=== PATIENT | female | born 1985 | race Caucasian/White ===

== ENCOUNTER 2023-05-05 18:37 | Emergency (ER) | payer BC, SELFPAY ==
[2023-05-05 18:38] VITALS: BP 135/84; PULSE 90; RESP 20; TEMP 36.4; O2SAT 100; BMI 29.2
--- NOTE | 2023-05-05 19:08 | XR_ITS ---
PROCEDURE INFORMATION: Exam: XR Right Foot Exam date and time: 05/05/2023 7:06 PM Age: 37 years old Clinical indication: Injury or trauma; Fall; Blunt trauma; Foot; Right; Additional info: Inversion injury TECHNIQUE: Imaging protocol: Radiologic exam of the right foot. Views: 3 or more views. COMPARISON: No relevant prior studies available. FINDINGS: Bones/joints: Normal. Soft tissues: Normal. IMPRESSION: No acute findings.
--- NOTE | 2023-05-05 19:08 | XR_ITS ---
PROCEDURE INFORMATION: Exam: XR Right Ankle Exam date and time: 05/05/2023 7:08 PM Age: 37 years old Clinical indication: Injury or trauma; Fall; Blunt trauma; Ankle; Right; Additional info: Inversion injury TECHNIQUE: Imaging protocol: Radiologic exam of the right ankle. Views: 3 or more views. COMPARISON: CR XR FOOT RT MIN 3V 05/05/2023 7:06 PM FINDINGS: Bones/joints: Normal. Soft tissues: Normal. IMPRESSION: No acute findings.
--- NOTE | 2023-05-05 19:09 | [facility].EDGENADL ---
Discharge Plan Disposition Patient Disposition: Home, Self-Care Referrals Follow up/Referrals: Jim Taylor [Primary Care Provider] - See instructions Clinical Impressions Clinical Impression: Strain of ankle and foot Discharge ED Provider: Gilbert Diaz General Adult HPI General Chief complaint: Extremity Injury, Lower Stated complaint: right ankle pain, no known accident Time Seen by Provider: 05/05/23 19:02 Mode of Arrival: Ambulatory Source of Information: Patient Limitations: No Limitations Description of Symptoms (Recalled from ER Triage Doc. by RN): pt stepped down into mudrrom at house and rolled her right ankle and now it is hurting, pms intact History of Present Illness HPI narrative: Is a previously healthy 37-year-old female presenting today with right ankle and foot pain after an inversion injury when she stepped into a mud room. No significant swelling but she does have some tenderness. [facility] Disclaimer: The information contained in this section may have been updated after the patient was seen, as this information can be updated by other users. Social History Smoking Status: Never smoker alcohol intake: never current occupational status: other Travel in the last 8 weeks: None ROS Obtained: Yes All systems reviewed & no additional complaints except as documented Physical Exam General General appearance: alert Respiratory Respiratory exam: Present normal lung sounds bilaterally Cardiovascular Cardiovascular exam: Present regular rate Extremities Exam Extremities exam: Present other (No significant soft tissue swelling of the right ankle no tenderness compression with distal or proximal tib-fib or some tenderness palpation over the right lateral malleolus and midfoot) Neurological Exam Neurological exam: Present alert Medical Decision Making Koko Inquiry Pt receiving controlled substance: No Vital Signs: 05/05/23 18:38 05/05/23 19:38 Temperature 97.6 F 98.1 F Temperature Source Oral Pulse Rate 68 Pulse Rate [Right Radial] 90 Respiratory Rate 20 20 Blood Pressure 120/76 Blood Pressure [Right Arm] 135/84 Blood Pressure Mean [Right Arm] 101 02 Sat by Pulse Oximetry 100 Oxygen Delivery Method Room Air Room Air Orders (Tests/Meds): ORDERS Category Date Time Status Ankle XR -Right minimum 3 Views [XR ankle RT min 3V] Exams 05/05/23 19:08 Taken Stat Foot XR right minimum 3 views [XR foot RT min 3V] Stat Exams 05/05/23 19:08 Taken Medical Decision Narrative: Right inversion ankle and foot injury differential includes fracture dislocation sprain I favor sprain we will get plain films and reassess. Reassessed 7:41 PM x-rays performed which I personally interpreted and I do not see any fractures dislocations or any significant acute musculoskeletal abnormality. This is consistent with a sprain supportive care discussed patient was discharged in stable condition. Critical Care Critical Care Time Critical Care Time: No
[2023-05-05 19:38] VITALS: BP 120/76; PULSE 68; RESP 20; TEMP 36.7; O2SAT 99
== END 2023-05-05 19:39 | disposition home or self-care (01) ==
PROVIDERS: Emergency Provider Student in an Organized Health Care Education/Training Program; PCP Family Medicine
DX: S96.911A Strain of unspecified muscle and tendon at ankle and foot level, right foot, initial encounter (principal); X50.1XXA Overexertion from prolonged static or awkward postures, initial encounter
CPT/HCPCS: 73610; 73630; 99284